=== PATIENT | male | born 1940 | race Caucasian/White ===

== ENCOUNTER 2017-02-27 07:53 | Day surgery (SDC) ==
[2017-02-27] MEDS ORDERED: VERSED ONE (10:45)
[2017-02-27] MEDS ORDERED: DIPRIVAN 20 ML VIAL IVP ONE (10:45)
[2017-02-27 12:20] VITALS: BP 132/73; TEMP 98.1
--- NOTE | 2017-02-27 15:24 | OP ---
PROCEDURE: COLONOSCOPY TO THE CECUM WITH BIOPSY AND SNARE POLYPECTOMY. ENDOSCOPIST: Fermin MURRAY M.D. INDICATION: ULCERATIVE COLITIS. HISTORY OF POLYPS. INSTRUMENT: [facility]190. MEDICATION: PER ANESTHESIA. PROCEDURE: The patient was positioned for colonoscopy. The digital rectal exam was negative. The colonoscope was inserted through the anus and advanced to the cecum. Mild colitis noted in the left colon. I was unable to reduce the loop in the right colon. Biopsies were obtained of the cecum, ascending colon, hepatic flexure, transverse colon times three sets, 80cm, 70cm, 60cm, 50cm, 40cm , 20cm and the rectum. A small polyp at the hepatic flexure removed using snare cautery. Retroflex exam was otherwise normal. The patient tolerated the procedure well. PLAN: 1. Review pathology with repeat exam in 2-3 years CC: Dr. Ramone LOVELACE
== END 2017-02-27 12:37 | disposition home or self-care (01) ==
LOC: SURG 07:53
PROVIDERS: ATTEND Internal Medicine Gastroenterology
DX: K51.90 Ulcerative colitis, unspecified, without complications (principal); D12.0 Benign neoplasm of cecum; D12.2 Benign neoplasm of ascending colon; D12.3 Benign neoplasm of transverse colon; D12.4 Benign neoplasm of descending colon; D12.5 Benign neoplasm of sigmoid colon; D12.7 Benign neoplasm of rectosigmoid junction; Z86.010 Personal history of colon polyps; K57.30 Diverticulosis of large intestine without perforation or abscess without bleeding